=== PATIENT | female | born 1960 | race Asian ===

== ENCOUNTER 2020-05-16 10:46 | Emergency (ER) | payer OTHER ==
[~2020-05-16] VITALS: Ht 160 cm; Wt 45.4 kg
[2020-05-16 11:03] VITALS: BP 140/85
--- NOTE | 2020-05-16 11:31 | NUR ---
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 SEEN BY URGENT CARE TODAY. BLOOD SUGAR 198. PMH: DM
--- NOTE | 2020-05-16 12:38 | NUR ---
Patient being evaluated by DR GAYTAN at TRIAGE ROOM.
--- NOTE | 2020-05-16 12:43 | NUR ---
Raciel ascencio in ED - 05/16/20 at 1244 by [email or web address] PT TAKEN TO CT
--- NOTE | 2020-05-16 12:43 | NUR ---
Patient taken to CT scan via wheelchair by tech.
[2020-05-16 13:15] LABS: APPEARANCE,URINE CLEAR (CLEAR); BILIRUBIN,URINE NEGATIVE (NEGATIVE); BLOOD, URINE NEGATIVE (NEGATIVE); COLOR,URINE YELLOW (YELLOW); LEUKOCYTE ESTERASE ,URINE NEGATIVE (NEGATIVE); NITRITE, URINE NEGATIVE (NEGATIVE); UGLUCOSE NEGATIVE (NEGATIVE)
[2020-05-16 13:38] VITALS: BP 140/85
--- NOTE | 2020-05-16 13:39 | NUR ---
Patient discharged with v/s stable. Written and verbal after care instructions given and explained. Patient verbalized understanding. Ambulatory with steady gait. All questions addressed prior to discharge. Advised to follow up with PMD.
== END 2020-05-16 13:39 | disposition home or self-care (01) ==
LOC: MED 10:46
DX: H43.391 Other vitreous opacities, right eye (principal); E11.9 Type 2 diabetes mellitus without complications; R42 Dizziness and giddiness; R51.9 Headache, unspecified; I10 Essential (primary) hypertension; E78.5 Hyperlipidemia, unspecified
CPT/HCPCS: 70450; 81003; 93005; 99285